=== PATIENT | female | born 1985 | race Caucasian/White ===

== ENCOUNTER 2022-10-30 05:28 | Emergency (ER) | payer MEDICAID ==
[~2022-10-30] VITALS: Ht 157.5 cm; Wt 70.5 kg
[2022-10-30] MEDS ORDERED: ACETAMINOPHEN WITH CODEINE 300/30MG TABLET PO ONE (06:30)
[2022-10-30] MEDS ORDERED: ACETAMINOPHEN WITH CODEINE 300/30MG TABLET PO NR (06:30)
[2022-10-30] MEDS ORDERED: VANCOMYCIN 1G PREMIX 200 ML IV SCH (06:45)
[2022-10-30 07:11] LABS: BASOPHILS % 0.6 % (0.0-2.0); EOSINOPHILS % 1.6 % (0.0-5.0); HEMATOCRIT. 32.2 % (36.0-48.0); HEMOGLOBIN. 10.3 g/dL (12.0-16.0); LYMPHOCYTES % 26.4 % (20.0-50.0); MEAN CORPUSCULAR HEMOGLOBIN 25.1 pg (28.0-32.0); MEAN CORPUSCULAR VOLUME 78.1 fL (81.0-99.0); MEAN PLATELET VOLUME 8.8 fl (7.4-10.4); MONOCYTES % 7.3 % (2.0-8.0); NEUTROPHILS % 64.1 % (40.0-76.0); PLATELET 257 x1000/uL (130-400); RED BLOOD CELL COUNT 4.12 mill/uL (4.2-5.4); RED CELL DISTRIBUTION WIDTH 18.5 % (11.6-14.6)
[2022-10-30 07:17] VITALS: BP 130/75
[2022-10-30 07:25] LABS: CHLORIDE 106 mEq/L (98-107)
[2022-10-30] MEDS ORDERED: CEPH500T PO (07:27)
[2022-10-30] MEDS ORDERED: SULF1TAB48 PO (07:27)
[2022-10-30] MEDS ORDERED: TOPUD PO (07:27)
[2022-10-30] MEDS ORDERED: CEFAZOLIN 1000MG PREMIX 50 ML IV ONE (07:30)
== END 2022-10-30 07:47 | disposition left against medical advice (07) ==
LOC: ER 05:28
DX: L03.113 Cellulitis of right upper limb (principal)
CPT/HCPCS: 36415; 76604; 80053; 85025; 99284; J0690